=== PATIENT | female | born 1985 | race Asian ===

== ENCOUNTER 2021-03-29 10:50 | Day surgery (SDC) | payer OTHER, SELFPAY ==
[~2021-03-29] VITALS: Ht 170.2 cm; Wt 111.1 kg
[2021-03-29] MEDS ORDERED: fentaNYL citrate 0.05 MG/ML VIAL ONE (11:41)
[2021-03-29] MEDS ORDERED: MIDAZOLAM 5 MG/5 ML VIAL ONE (11:41)
[2021-03-29] MEDS ORDERED: diphenhydrAMINE 50 MG/ML VIAL ONE (11:41)
[2021-03-29] MEDS ORDERED: MIDAZOLAM 2 MG/2 ML VIAL IVP ONE (12:45)
[2021-03-29] MEDS ORDERED: diphenhydrAMINE 50 MG/ML VIAL IVP ONE (12:45)
[2021-03-29] MEDS ORDERED: fentaNYL citrate 0.05 MG/ML VIAL IVP ONE (12:45)
== END 2021-03-29 13:02 | disposition home or self-care (01) ==
LOC: MDS 10:50 → MMU 10:51 → MDS 13:02
PROVIDERS: ATTEND Internal Medicine Gastroenterology
DX: R13.10 Dysphagia, unspecified (principal); K21.00 Gastro-esophageal reflux disease with esophagitis, without bleeding; K44.9 Diaphragmatic hernia without obstruction or gangrene; F12.19 Cannabis abuse with unspecified cannabis-induced disorder; Z79.899 Other long term (current) drug therapy; Z20.822 Contact with and (suspected) exposure to COVID-19
CPT/HCPCS: 43239; 87426; J1200; J2250; J3010

== ENCOUNTER 2023-05-17 08:29 | Day surgery (SDC) | payer OTHER ==
[~2023-05-17] VITALS: Ht 170.2 cm; Wt 90.7 kg
[2023-05-17] MEDS ORDERED: fentaNYL citrate 0.05 MG/ML VIAL ONE ×2 (11:50)
[2023-05-17] MEDS ORDERED: MIDAZOLAM 5 MG/5 ML VIAL ONE (11:50)
[2023-05-17] MEDS: MIDAZOLAM 5 MG/5 ML VIAL IV ONE (11:58)
== END 2023-05-17 13:33 | disposition home or self-care (01) ==
LOC: MDS 08:29 → MMU 08:43 → MDS 13:33
PROVIDERS: ATTEND Internal Medicine Gastroenterology
DX: K21.00 Gastro-esophageal reflux disease with esophagitis, without bleeding (principal); K22.2 Esophageal obstruction; Z90.49 Acquired absence of other specified parts of digestive tract; Z79.899 Other long term (current) drug therapy
CPT/HCPCS: 43239; 88305; J2250; J3010